=== PATIENT | male | born 1990 | race Caucasian/White ===

== ENCOUNTER 2021-12-19 10:28 | Emergency (ER) | payer MEDICAID ==
[~2021-12-19] VITALS: Ht 172.7 cm; Wt 90.7 kg
--- NOTE | 2021-12-19 10:31 | NUR ---
NATANAELRA 39 FROM HOME C/O GEN HIVES AND ITCHINESS STARTED 30 MINS AGO AFTER TAKING TETRACYCLINE. EPI 0.5 1:1000 AND 50 MG BENADRYL 50 MG IM GIVEN. PT ATTCHED TO MONITOR. WARM BLANKET PROVIDED FOR COMFORT. O2 SAT 98% ON ROOM AIR, NO RESPIRATORY DISTRESS NOTED AT THIS TIME.
[2021-12-19] MEDS ORDERED: FAMOTIDINE/PF INJ 20 MG/2 ML VIAL IV ONE ×2 (10:35→11:00)
--- NOTE | 2021-12-19 10:35 | NUR ---
SEEN AND EXAMINED BY .
[2021-12-19] MEDS ORDERED: methylPREDNISolone SOD SUCC 125 MG/2ML VIAL ONE ×2 (10:36→10:39)
[2021-12-19] MEDS ORDERED: methylPREDNISolone SOD SUCC 125 MG/2ML VIAL IV ONE (11:00)
[2021-12-19] MEDS ORDERED: IV NS 0.9% 1,000 ML BAG IV ONE (11:00)
[2021-12-19] MEDS ORDERED: EPIN0.3P3 IM (15:19)
[2021-12-19 15:23] VITALS: BP 134/77
--- NOTE | 2021-12-19 15:23 | NUR ---
IV removed. Catheter intact and site benign. Pressure and 4x4 applied to site. No bleeding noted.Patient discharged to home in stable condition. Written and verbal after care instructions given. Patient verbalizes understanding of instruction.
== END 2021-12-19 15:24 | disposition home or self-care (01) ==
LOC: ER 10:29
DX: T78.2XXA Anaphylactic shock, unspecified, initial encounter (principal); Z79.899 Other long term (current) drug therapy
CPT/HCPCS: 96361; 96374; 96375; 99285; J2930 ×2; J3490; J7030